=== PATIENT | male | born 1995 | race Caucasian/White ===

== ENCOUNTER 2016-07-18 17:20 | Emergency (ER) | payer OTHER ==
--- NOTE | 2016-07-18 17:58 | RAD ---
Name: IGNACIO CHAMBERS Exam: Right lower leg Comparison: None Clinical history: Crush injury Findings: 2 views right lower leg are submitted. Bone density is normal. Joint spaces are maintained. There is no fracture, dislocation, periosteal reaction or foreign body. At the tip of the lateral malleolus, there is a well-corticated 1 cm calcific density compatible with an old fracture fragment or unfused ossicle Impression: No acute bony abnormality
== END 2016-07-18 19:03 | disposition home or self-care (01) ==
LOC: ED 17:20
DX: S87.81XA Crushing injury of right lower leg, initial encounter (principal); V83.9XXA Unspecified occupant of special industrial vehicle injured in nontraffic accident, initial encounter; Y92.69 Other specified industrial and construction area as the place of occurrence of the external cause; Y99.0 Civilian activity done for income or pay